=== PATIENT | female | born 1995 | race Caucasian/White ===

== ENCOUNTER 2023-08-28 00:23 | Emergency (ER) | payer BC, OTHER ==
[2023-08-28] MEDS ORDERED: Sodium Chloride 0.9% 10 ML Syringe FLUSH PRN (00:32)
[2023-08-28] MEDS: Lactated Ringers 1,000 ML IV ONE (00:51)
[2023-08-28] MEDS: Ondansetron 4 MG/2 ML SDV IVPUSH ONE (00:51)
== END 2023-08-28 01:36 | disposition home or self-care (01) ==
LOC: FB.ED 00:23
DX: O21.9 Vomiting of pregnancy, unspecified (principal); Z88.2 Allergy status to sulfonamides; Z79.899 Other long term (current) drug therapy; Z3A.00 Weeks of gestation of pregnancy not specified
CPT/HCPCS: 96361; 96374; 99283; 99283-25; J2405; J7120